=== PATIENT | female | born 1995 | race African-American/Black ===

== ENCOUNTER 2025-02-27 08:13 | Emergency (ER) | payer SELFPAY ==
[2025-02-27] VITALS (7 sets, daily range): BP systolic 105–136; BP diastolic 71–86; PULSE 67–88; RESP 12–16; TEMP 37; O2SAT 100
--- NOTE | ~2025-02-27 | XR_ITS ---
EXAMINATION: XR chest 2V 02/27/2025 08:52 INDICATION: Chest pain PROCEDURE: 2 view chest COMPARISON: No prior studies for comparison. FINDINGS: The lungs are clear. The cardiomediastinal silhouette is within normal limits. There are no pleural effusions. There is no pneumothorax suspected. IMPRESSION: 1: NO ACUTE CARDIOPULMONARY DISEASE. Reviewed, dictated and finalized at location I. EY CHIEF
--- NOTE | 2025-02-27 08:25 | ECG_ITS ---
Test Date: 2025-02-27 08:32:12 Measurements Intervals [place] Rate: 72 P: 18 GA: 127 QRS: 29 QRSD: 75 T: 4 QT: 376 QTc: 412 Interpretive Statements SINUS RHYTHM BORDERLINE T WAVE ABNORMALITY- ANT/INF LEADS BASELINE ARTIFACT- I, II, III, AVR, AVL, AVF, V1-V6 BORDERLINE ECG No previous ECG available for comparison Electronically Signed On 02-27-2025 08:36:17 STEEL POST INSTALLER SUPERVISOR by Hossein Cano D.O.
--- OUTSIDE RECORDS SUMMARY | 2025-02-27 08:28 | XMS_ITS | Clinical Summary ---
Author Organization [facility] Address [address] [place] [address] Phone Care Team Providers Care Lithographic Press Operator Name Role Phone Dejah Arriaza APRN, NUCLEAR WEAPONS CUSTODIAN Primary Care Provider Allergies No known active allergies Medications ergocalciferol (VITAMIN D) 86768 UNIT Capsule Take 1 Cap by mouth every 7 days. Takes on Saturdays 7 Active ondansetron (ZOFRAN) 4 MG Tablet Take 1 Tab by mouth every 8 hours as needed for Nausea. 15 Tab 0 7 Active acetaminophen (TYLENOL) 325 MG Tablet Take 2 Tabs by mouth every 4 hours as needed for Fever. 30 Tab 8 Active meclizine (ANTIVERT) 25 MG Tablet Take 1 Tab by mouth 3 times daily as needed for Dizziness. 15 Tab 8 Active Family History Medical History Relation Name Comments Hypertension Mother Relation Name Status Comments Mother Alive Social History Tobacco Use Types Packs/Day Years Used Date Smoking Tobacco: Never Smokeless Tobacco: Never Tobacco Cessation:Counseling Given: Yes Alcohol Use Standard Drinks/Week Comments No 0 (1 standard drink = 0.6 oz pur e alcohol) Comments No Sex and Gender Information Value Date Recorded Sex Assigned at Not on file Legal Sex Female 9:54 PM CDT Gender Identity Not on file Sexual Orientation Not on file Last Filed Vital Signs Vital Sign Reading Time Taken Comments Blood Pressure 129/69 11/17/2017 8:19 PM CDT Pulse 83 11/17/2017 9:46 PM CDT Temperature 36.7 C (98 F) 11/17/2017 8:19 PM CDT Respiratory Rate 16 11/17/2017 9:46 PM CDT Oxygen Saturation 97% 11/17/2017 9:46 PM CDT Inhaled Oxygen Concentration - - Weight 72.1 kg (159 lb) 11/17/2017 8:19 PM CDT Height 154.9 cm (5' 1) 11/17/2017 8:19 PM CDT Body Mass Index 30.04 11/17/2017 8:19 PM CDT Plan of Treatment Health Maintenance Due Date Last Done Comments Hepatitis C Virus (HCV) Screening 1994 Pap Smear 12/13/2015 Human Papillomavirus (HPV) Immunization (1 - 3-dose SCDM series) 2021 Varicella Immunization (2 of 2 - 13+ 2-dose series) 10/12/2022 09/14/2022 Influenza Immunization (#1) 2024 01/05/2023, 0 04/15/2016 SARS-COV-2 Immunization (2 - 2024- season) 2024 09/14/2022 Cervical Cancer Screening (CCS) 2024 HPV/Cotest 2024 Respiratory Syncytial Virus (RSV) Immunization (Adult) (1 - 1-dose 75+ series) 2069 Hepatitis B Immunization Completed 000, 04/14/1999, 02/23/1995, Additional history exists DTaP/Tdap/Td Immunization Discontinued 2022, 12/23/2005, 06/20/2000, Additional history exists TdaP Immunization Completed 09/13/2022, 12/23/2005 Meningococcal Immunization (ACWY) Aged Out No longer eligible based on patient's age to complete this topic Pneumococcal Immunization Combined Aged Out No longer eligible based on patient's age to complete this topic Rotavirus Immunization Aged Out No lo nger eligible based on patient's age to complete this topic Insurance MEDICAID [employer] Care Teams Lithographic Press Operator Relationship Specialty Start Date End Date Dejah Arriaza, THIRD RIGGER, NUCLEAR WEAPONS CUSTODIAN PCP - General Advanced Practice Nurse 04/06/23
--- OUTSIDE RECORDS SUMMARY | 2025-02-27 08:29 | XMS_ITS | Clinical Summary ---
Author Organization [facility] Address [address] [place] [id number] Care Team Providers Care Nursing Home Assistant Name Role Phone Jenna Toro NP Primary Care Provider [phone] Allergies No known active allergies Medications amoxicillin-clav ulanate (AUGMENTIN) 875-125 mg per tablet Take 1 tablet by mouth every 12 (twelve) hours 14 tablet 12/25/2021 Active Active Problems No known active problems Medical History Medical History Date Comments Disorder of thyroid Thyroid dise ase Family History Medical History Relation Name Comments Hypertension Mother Hypertension; Breast cancer Other 1 Family history of Cancer, breast; Colon cancer Other 2 Family history of Cancer, colon; Relation Name Status Comments Mother Other 1 Other 2 Social History Tobacco Use Types Packs/Day Years Used Date Smoking Tobacco: Never Smokeless Tobacco: Never Alcohol Use Standard Drinks/Week Comments Yes 0 (1 standard drink = 0.6 oz pur e alcohol) Comments No Sex and Gender Information Value Date Recorded Sex Assigned at Not on file Legal Sex Female 7:26 PM COMIC BOOK WRITER Gender Identity Not on file Sexual Orientation Not on file Obstetrics History Para Term AB IAB SAB Ectopic Multiple Livin g Live Births 1 Date Outcome GA Total Labor Labor/2nd/3rd Weight Sex Type Anes PTL Davida A1 A5 Name Clin Last Filed Vital Signs Vital Sign Reading Time Taken Comments Blood Pressure 120/75 12/25/2021 11:00 AM CDT Pulse 93 12/25/2021 11:00 AM CDT Temperature 37.7 C (99.9 F) 12/25/2021 8:01 AM CDT Respiratory Rate 18 12/25/2021 9:40 AM CDT Oxygen Saturation 99% 12/25/2021 11:00 AM CDT Inhaled Oxygen Concentration - - Weight 74.4 kg (164 lb) 12/25/2021 8:01 AM CDT Height 157.5 cm (5' 2) 12/25/2021 8:01 AM CDT Body Mass Index 30 12/25/2021 8:01 AM CDT Plan of Treatment Not on file Insurance [employer] Care Teams Nursing Home Assistant Relationship Specialty Start Date End Date Jenna Toro NP [address] [address] PCP - General Family Medicine 07/28/22
[2025-02-27 08:39] LABS: Hematocrit 39.8 % (37.0-47.0); Hemoglobin 12.7 g/dL (12.0-15.0); Immature Granulocyte Percent A 0.3 % (0-0.5); Lymphocytes Absolute Auto 1.47 K/mm3 (0.9-3.2); Mean Corpuscular HGB Conc 31.9 g/dl (32-36); Mean Corpuscular Hemoglobin 28.1 pg (26-34); Mean Corpuscular Volume 88.1 fl (80-100); Nucleated Red Blood Cells Absolute Auto 0.000 K/mm3 (0.0-0.012); Nucleated Red Blood Cells Perc 0.0 % (0.0-0.2); Platelet Count Result 370 k/mm3 (150-375); Red Blood Count 4.52 M/mm3 (4.2-5.4); White Blood Count 3.8 K/mm3 (4.5-10.0)
[2025-02-27 08:54] LABS: Alanine Aminotransferase 26 U/L (6-35); Albumin Level 4.5 g/dL (3.5-5.1); Alkaline Phosphatase 55 U/L (38-126); Anion Gap 6 mmol/L (4-12); Aspartate Amino Transferase 28 U/L (14-36); Bilirubin,Total 0.8 mg/dL (0.2-1.3); Blood Urea Nitrogen 19 mg/dL (7-17); Calcium 9.1 mg/dL (8.4-10.2); Carbon Dioxide 26 mmol/L (22-30); Chloride 109 mmol/L (98-107); Estimated CRCL calculation 85 ml/min; Estimated Glomerular Filt Rate > 60; Glucose 111 mg/dL (65-110); Lipase 41 U/L (23-300); Potassium 3.4 mmol/L (3.4-5.0); Sodium 141 mmol/L (137-145); Total Protein 7.8 g/dL (6.3-8.2)
[2025-02-27 08:59] LABS: INR 1.0; Partial Thromboplastin Time 26.6 Seconds (22.3-36.8); Prothrombin Time 13.7 Seconds (11.1-14.7)
[2025-02-27 09:05] LABS: Troponin I < 0.012 ng/mL (0.000-0.034)
--- OUTSIDE RECORDS SUMMARY | 2025-02-27 10:12 | XMS_ITS | Clinical Summary ---
Author Organization [facility] Address [address] [place] [id number] Care Team Providers Care Force Dispatcher Name Role Phone Jenna Toro NP Primary Care Provider [phone] Allergies No known active allergies Medications amoxicillin-clav [...] on file Legal Sex Female 7:26 PM FUNDING COORDINATOR Gender Identity Not on file Sexual Orientation [...] Not on file Insurance IDPA Care Teams Force Dispatcher Relationship Specialty Start Date End Date Jenna Toro NP [address] [address] PCP - General Family Medicine 07/28/22
--- OUTSIDE RECORDS SUMMARY | 2025-02-27 10:12 | XMS_ITS | Clinical Summary ---
Author Organization [facility] Address [address] [place] [address] Phone Care Team Providers Care Guide Escort Name Role Phone Dejah Arriaza APRN, CO SUPERVISOR GROUNDS [employer] LANDSCAPE Primary Care Provider Allergies No known active allergies Medications ergocalciferol (VITAMIN D) 41585 UNIT Capsule Take 1 Cap by mouth [...] Insurance MEDICAID [employer] Care Teams Guide Escort Relationship Specialty Start Date End Date Dejah Arriaza, HORSE FARM MANAGER, CO SUPERVISOR GROUNDS [employer] LANDSCAPE PCP - General Advanced Practice Nurse 04/06/23
--- NOTE | 2025-02-27 13:42 | ED_ITS ---
HPI - Chest Pain General Chief Complaint: Chest Pain Stated Complaint: CHEST PAIN,SOB LAST HS Time Seen by Provider: 02/27/25 08:29 History of Present Illness HPI narrative: Patient does have h/o anxiety and started having some chest pain and shortness of breath last night; her mom has cardiac hx so wanted to get checked out Related Data Allergies Allergy/AdvReac Type Severity Reaction Status Date / Time No Known Allergies Allergy Verified 02/27/25 08:39 Review of Systems 2 Review of Systems: All systems reviewed & are unremarkable except as noted in HPI and below Exam 2 Narrative: EXAMINATION OF ORGAN SYSTEMS/BODY AREAS: Constitutional: Vital signs per nursing GENERAL:[No acute distress, non-toxic appearing.] HEAD: Normal with no signs of head trauma. EYES: EOMI, conjunctiva normal ENT: Hearing grossly intact LUNGS: Nonlabored breathing. Clear to auscultation bilaterally HEART: [Regular rate and rhythm] ABD: [Soft], [nontender to palpation] EXT: Normal range of motion; no lower extremity tenderness/swelling SKIN: [No rashes or lesions.] NEURO: [Alert. No gross focal sensory or strength deficits.] PSYCH: Normal affect Course Vital Signs Vital signs: Vital Signs Temperature 98.6 F 02/27/25 08:15 Pulse Rate 88 02/27/25 08:15 Respiratory Rate 16 02/27/25 08:15 Blood Pressure 136/86 02/27/25 08:15 Pulse Oximetry 100 02/27/25 08:15 Temperature 98.6 F 02/27/25 08:15 Pulse Rate 79 02/27/25 10:35 Respiratory Rate 16 02/27/25 10:35 Blood Pressure 105/73 02/27/25 10:35 Pulse Oximetry 100 02/27/25 10:35 Oxygen Delivery Room Air 02/27/25 08:38 [facility] MDM Narrative Medical decision making narrative: 29F presenting with chest pain. EKG done in triage negative for acute ischemic changes. Cardiac workup is initiated. EKG: Performed in triage and interpreted by me. Normal sinus rhythm. Rate 72. Normal axis. MI normal. QRS duration normal. QTc normal. No pathologic Q waves. No ST segment elevation or depression to suggest acute ischemia. No RV strain pattern. HEART score is 0 with no acute ischemic changes on EKG and negative troponin making ACS unlikely. Wells low risk with negative PERC making PE unlikely. Presentation not consistent with dissection or aneurysm without radiation of pain or pulse deficits. CXR negative for mediastinal widening. No abdominal pain or signs of sepsis that would be concerning for esophageal perforation or mediastinitis. No cardiomegaly or JVD to suggest pericardial effusion/tamponade. On repeat evaluation just prior to discharge, the patient is no acute distress. I had a long discussion with the patient and with shared decision making, she is comfortable with outpatient management. She was given clear return instructions by myself in person as well as on discharge paperwork. Differential Diagnosis Differential Diagnosis: panic attack/anxiety, ACS, pneumonia, pneumothorax Lab Data 02/27/25 08:34 02/27/25 08:34 Labs: Lab Results 02/27/25 Range/Units 08:34 WBC 3.8 L (4.5-10.0) K/mm3 RBC 4.52 (4.2-5.4) M/mm3 Hgb 12.7 (12.0-15.0) g/dL Hct 39.8 (37.0-47.0) % MCV 88.1 (80-100) fl MCH 28.1 (26-34) pg MCHC 31.9 L (32-36) g/dl RDW 14.3 (11.5-14.5) % Plt Count 370 (150-375) k/mm3 MPV 9.9 (7.4-10.4) fl Immature Gran % (Auto) 0.3 (0-0.5) % Neut % (Auto) 51.7 (45.5-73.1) % Lymph % (Auto) 38.6 (18.3-44.2) % [place] % (Auto) 8.4 (2.6-8.5) % Eos % (Auto) 0.5 (0-4.4) % Baso % (Auto) 0.5 (0.2-1.2) % Lymph # (Auto) 1.47 (0.9-3.2) K/mm3 [place] # (Auto) 0.3 (0.1-0.6) K/mm3 Eos # (Auto) 0.0 (0-0.3) K/mm3 Baso # (Auto) 0.0 (0.0-0.1) K/mm3 Abs Immat Gran (auto) 0.01 (0.00-0.031) K/mm3 Absolute Neuts (auto) 2.0 (1.3-6.7) K/mm3 Absolute Nucleated RBC 0.000 (0.0-0.012) K/mm3 Nucleated RBC % 0.0 (0.0-0.2) % PT 13.7 (11.1-14.7) Seconds INR 1.0 APTT 26.6 (22.3-36.8) Seconds Sodium 141 (137-145) mmol/L Potassium 3.4 (3.4-5.0) mmol/L Chloride 109 H (98-107) mmol/L Carbon Dioxide 26 (22-30) mmol/L Anion Gap 6 (4-12) mmol/L BUN 19 H (7-17) mg/dL Creatinine 0.79 (0.7-1.0) mg/dL Estim Creat Clear Calc 85 ml/min Estimated GFR > 60 (59 - ) Glucose 111 H (65-110) mg/dL Calcium 9.1 (8.4-10.2) mg/dL Total Bilirubin 0.8 (0.2-1.3) mg/dL AST 28 (14-36) U/L ALT 26 (6-35) U/L Alkaline Phosphatase 55 (38-126) U/L Troponin I < 0.012 (0.000-0.034) ng/mL Total Protein 7.8 (6.3-8.2) g/dL Albumin 4.5 (3.5-5.1) g/dL Lipase 41 (23-300) U/L Imaging Data Radiologist's impression: ITS Impressions Chest X-Ray 02/27/25 08:56 IMPRESSION: 1: NO ACUTE CARDIOPULMONARY DISEASE. Discharge Plan Discharge Clinical Impression: Atypical chest pain Patient Disposition: Home Condition: Stable Instructions: Chest Pain (ED) Additional Instructions: Please follow up with your doctor; you can always return for any further issues. Patient Language: Estonian Follow-up/Referrals: Arsalan,Dejah Hughes, SOLID WASTE DISPOSAL MANAGER [Primary Care Provider, Unknown]
== END 2025-02-27 10:36 | disposition home or self-care (01) ==
PROVIDERS: Emergency Provider Emergency Medicine; PCP Nurse Practitioner Family
DX: R07.89 Other chest pain (principal); R94.31 Abnormal electrocardiogram [ECG] [EKG]
CPT/HCPCS: 36415; 71046; 80053; 83690; 84484; 85025; 85610; 85730; 93005; 99284